=== PATIENT | male | born 1935 | race Caucasian/White ===

== ENCOUNTER → 2016-12-06 | Outpatient (CLI) | payer MEDICARE, BC ==
[~2016-12-06] MED LIST: LOTREL 10-20 MG1 CAP PO; LOTREL 10/40 MG1 CAP PO; OMEPRAZOLE40 MG PO; TOPROL XL 50 MG50 MG PO; TOPROL XL PO; ZETIA PO
--- NOTE | ~2016-12-06 | MR107 ---
[facility] A Service of [facility] RADIOLOGY TEXT RESULTS PATIENT: DAMON ZUNIGA LOCATION: [facility] : 39 UNIT #: [id number] AGE: [address]: Constantine Simpson MD SEX: M ORDER DR: [id number] [place] [id number] O MR#: [id number] Acc #: [id number] NAME: DAMON ZUNIGA : 1935 SEX: M STUDY DATE/TIME: 12/06/2016 15:41 UNIT: [facility] ROOM: STUDY DESCRIPTION: MR Lower Extrem WWo Cont Lt Attending Physician: Constantine Simpson Jr., M.D. Referring Physician: Constantine Simpson Jr., M.D. Ordering Physician: Constantine Simpson Jr., M.D. Primary Care Physician: Constantine Simpson Jr., M.D. MRI CENTER REPORT This report is preliminary unless electronic signature is present. EXAM MRI left lower extremity without and with IV contrast (knee through approximately proximal third of the tibia/fibula without and with IV contrast) 12/06/2016. COMPARISON No correlative studies. Office notes, [facility], 11/21/2016. HISTORY Order states left leg mass, 3 x 4 cm. History sheet states left lower leg tib-fib calf muscle area of mass for 2-3 months. Decreased range of motion in knee and increased swelling in the knee. Possible injury riding a bike. FINDINGS Markers were placed in the region of clinical concern in the posteromedial upper calf/knee region, where there is a large underlying 8.8 x 4.9 x 2.8 cm (craniocaudal by AP by transverse) lobulated cystic partially septated mass with rim enhancement communicating with the medial gastrocnemius-semimembranosus bursa. It is compatible with a large caudally extending popliteal (Cardona's) cyst. There is mild mass effect on the underlying medial gastrocnemius muscle. There is no evidence of enhancing or solid suspicious neoplasm. The exam includes the majority of the knee, but is not dedicated knee protocol. There is evidence of a small joint effusion, as well as inflammation in the infrapatellar fat pad in its deep aspect. 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 The patellar tendon and cruciate ligaments are intact. There is no high-grade medial or lateral compartment chondromalacia. There is potential horizontal tear of the medial meniscus which could be confirmed with appropriate knee protocol and coil evaluation, if clinically warranted. [facility] A Service of [facility] RADIOLOGY TEXT RESULTS PATIENT: DAMON ZUNIGA LOCATION: [facility] : 39 UNIT #: [id number] AGE: [address]: Constantine Simpson MD SEX: M ORDER DR: There is no marrow lesion or fracture. There is subarticular marrow edema of the lateral femoral trochlea secondary to high-grade chondromalacia. IMPRESSION 1. In the area of clinical concern is a large 8.8 x 4.9 x 2.8-cm popliteal (Cardona's) cyst with fluid distension of the semimembranosus-gastrocnemius bursa. There is mild inflammation/edema extending caudally from the cyst in the subcutaneous space and along the superficial aspect of the medial gastrocnemius muscle. 2. The included portion of the knee demonstrates patellofemoral compartment grade 4 chondromalacia/arthrosis. 3. Possible medial meniscus tear could be confirmed and characterized on a dedicated MRI of the knee, if clinically warranted. Correlate with focused clinical knee exam and/or orthopedic evaluation. 4. No suspicious mass or neoplasm. Dictated by... Monica Salazar M.D. THIS IS AN ELECTRONICALLY VERIFIED REPORT Monica Salazra M.D. at 12/08/2016 11:48 AM [employer] TD: 12/07/2016 16:02 JOB #: [id number] MRI CENTER REPORT Page 1 of 1
[2016-12-06 14:55] LABS: POC - CREATININE 1.23 mg/dL (0.64-1.27)
== END | disposition home or self-care (01) ==
LOC: SMRI 14:11
PROVIDERS: Family Medicine
DX: R22.42 Localized swelling, mass and lump, left lower limb (principal); M71.22 Synovial cyst of popliteal space [Baker], left knee
CPT/HCPCS: 73720; 82565; A9581